=== PATIENT | male | born 1995 | race Two or more races ===

== ENCOUNTER 2018-11-05 22:41 | Emergency (ER) | payer SELFPAY ==
[~2018-11-05] VITALS: Ht 167.6 cm; Wt 66.0 kg
[2018-11-05] MEDS ORDERED: KETOROLAC 30MG/ML VIAL IM ONE (23:30)
[2018-11-06] MEDS ORDERED: ONDANSETRON 4MG ODT PO ONE (00:30)
[2018-11-06] MEDS ORDERED: MORPHINE SULFATE 10 MG/ML CPJ IM ONE (00:30)
[2018-11-06 00:37] LABS: CLARITY URINE CLEAR (CLEAR); COLOR URINE YELLOW (YELLOW); KETONES URINE TRACE (NEGATIVE); LEUKOCYTE ESTERASE URINE NEGATIVE (NEGATIVE); NITRITE URINE NEGATIVE (NEGATIVE); OCCULT BLOOD URINE NEGATIVE (NEGATIVE); PH URINE 5.5 (4.5-8.0); PROTEIN URINE NEGATIVE (NEGATIVE); SPECIFIC GRAVITY URINE 1.026 (1.005-1.030); UROBILINOGEN URINE 0.2 E.U./dL (0.2-1.0)
== END 2018-11-06 02:43 | disposition home or self-care (01) ==
LOC: ER 22:41
DX: M54.5 Low back pain (principal)
CPT/HCPCS: 81003; 96372; 99283; J1885; J2270; Q0162